=== PATIENT | female | born 1970 | race African-American/Black ===

== ENCOUNTER 2018-09-05 02:21 | Inpatient (IN) | payer MEDICAID, OTHER ==
[~2018-09-05] VITALS: Ht 160 cm; Wt 82.1 kg
[2018-09-05] MEDS ORDERED: KETOROLAC 30 MG INJ IV STA (02:37)
[2018-09-05] MEDS ORDERED: HYDROmorphONE 0.5 MG/0.5 ML SYG IV STA (02:37)
[2018-09-05] MEDS ORDERED: ONDANSETRON 4 MG INJ IV STA (02:37)
[2018-09-05] MEDS ORDERED: SOD CHLORIDE 0.9% 1,000 ML IV ONE (04:00)
--- NOTE | 2018-09-05 05:49 | ERD ---
ER Documentation Chief Complaint Chief Complaint FLANK PAIN HPI This is a 47-year-old female who presents for evaluation of left flank pain. Patient was brought in by EMS, reporting significant pain, seen at an outside hospital [place] yesterday and was diagnosed with kidney stones, she has not had a fever, endorses nausea no vomiting. No chest pain or shortness of breath, symptoms are intermittent, no alleviating or aggravating factors. ROS All systems reviewed and are negative except as per history of present illness. Allergies Allergies: Coded Allergies: No Known Allergy (Unverified , 09/05/18) PMhx/Soc Medical and Surgical Hx: pt denies Surgical Hx History of Surgery: No Anesthesia Reaction: No Hx Neurological Disorder: No Hx Respiratory Disorders: No Hx Cardiac Disorders: Yes (HTN ) Hx Psychiatric Problems: Yes (ANXIETY ) Hx Miscellaneous Medical Probl: No Hx Alcohol Use: Yes (HEAVY DRINKER) Hx Substance Use: Yes (METH, MARIJUANA ) Hx Tobacco Use: Yes Smoking Status: Current every day smoker Physical Exam Vitals Vital Signs Date Temp Pulse Resp B/P (MAP) Pulse Ox O2 O2 Flow FiO2 Time Delivery Rate 09/05/18 90 16 126/98 95 Room Air 04:58 (107) 09/05/18 97.4 102 22 149/102 98 03:13 (118) 09/05/18 97.4 102 20 149/102 98 Nasal 3.0 03:06 (118) Cannula Physical Exam Const: Uncomfortable appearing, writhing in pain Head: Atraumatic Eyes: Normal Conjunctiva ENT: Normal External Ears, Nose and Mouth. Neck: Full range of motion. No meningismus. Resp: Clear to auscultation bilaterally Cardio: Regular rate and rhythm, no murmurs Abd: Soft, non tender, non distended. Normal bowel sounds Skin: No petechiae or rashes Back: No midline or flank tenderness Ext: No cyanosis, or edema Neur: Awake and alert Psych: Normal Mood and Affect Result Diagram: 09/05/180 09/05/18 024 Results 24 hrs Laboratory Tests Test 09/05/18 02:40 09/05/18 04:05 09/05/18 04:11 White Blood Count 8.5 10^3/ul Red Blood Count 4.46 10^6/ul Hemoglobin 13.2 g/dl Hematocrit 39.5 % Mean Corpuscular Volume 88.6 fl Mean Corpuscular Hemoglobin 29.6 pg Mean Corpuscular 33.4 g/dl Hemoglobin Concent Red Cell Distribution Width 13.6 % Platelet Count 257 10^3/UL Mean Platelet Volume 10.8 fl Immature Granulocytes % 0.200 % Neutrophils % 80.4 % Lymphocytes % 12.3 % Monocytes % 6.5 % Eosinophils % 0.5 % Basophils % 0.1 % Nucleated Red Blood Cells % 0.0 /100WBC Immature Granulocytes # 0.020 10^3/ul Neutrophils # 6.8 10^3/ul Lymphocytes # 1.0 10^3/ul Monocytes # 0.6 10^3/ul Eosinophils # 0.0 10^3/ul Basophils # 0.0 10^3/ul Nucleated Red Blood Cells # 0.0 10^3/ul Sodium Level 142 mmol/L Potassium Level 3.9 mmol/L Chloride Level 107 mmol/L Carbon Dioxide Level 24 mmol/L Anion Gap 11 Blood Urea Nitrogen 13 mg/dl Creatinine 1.35 mg/dl Est Glomerular Filtrat 51 mL/min Rate mL/min Glucose Level 123 mg/dl Calcium Level 10.3 mg/dl Total Bilirubin 0.7 mg/dl Direct Bilirubin 0.00 mg/dl Indirect Bilirubin 0.7 mg/dl Aspartate Amino 26 IU/L Transf (AST/SGOT) Alanine 20 IU/L Aminotransferase (ALT/SGPT) Alkaline Phosphatase 121 IU/L Troponin I < 0.012 ng/ml Total Protein 7.5 g/dl Albumin 4.2 g/dl Globulin 3.30 g/dl Albumin/Globulin Ratio 1.27 Lipase 98 U/L Urine Color YELLOW Urine Clarity CLOUDY Urine pH 5.0 Urine Specific [place] 1.021 Urine Ketones TRACE mg/dL Urine Nitrite NEGATIVE mg/dL Urine Bilirubin NEGATIVE mg/dL Urine Urobilinogen NEGATIVE mg/dL Urine Leukocyte Esterase NEGATIVE Nickolas/ul Urine Microscopic RBC 3 /HPF Urine Microscopic WBC 8 /HPF Urine Squamous Epithelial Cells MANY /HPF Urine Calcium Oxalate Crystals FEW /HPF Urine Bacteria FEW /HPF Urine Mucus FEW /HPF Urine Hemoglobin NEGATIVE mg/dL Urine Glucose NEGATIVE mg/dL Urine Total Protein NEGATIVE mg/dl POC Beta HCG, Qualitative NEGATIVE Current Medications Medications Dose Sig/En[place] Start Time Status Last (Trade) Ordered Route PRN Stop Time Admin Dose Reason Admin 1 mg ONCE STAT 09/05/18 DC 09/05/18 Hydromorphone IV 02:37 02:45 HCl 09/05/18 02:39 (Dilaudid) Ondansetron 4 mg ONCE STAT 09/05/18 DC 09/05/18 HCl (Zofran IV 02:37 02:45 Inj) 09/05/18 02:39 Ketorolac 30 mg ONCE STAT 09/05/18 DC 09/05/18 Tromethamine IV 02:37 02:45 (Toradol) 09/05/18 02:39 Sodium 1,000 ml @ Q1H ONCE 09/05/18 DC 09/05/18 Chloride 1,000 mls/hr IV 04:00 02:45 09/05/18 04:59 Procedures/MDM This is a 47-year-old female who presents for relation of left-sided flank pain. She was at [facility] as noted above, and was diagnosed kidney stone, her CT scan showed an obstructing proximal left ureter stone, given these findings, and her persistent pain she will be admitted for further workup. She has no evidence of infection, and is otherwise hemodynamically stable. She will be admitted to [facility] EKG: Rate/Rhythm: Normal Sinus Rhythm QRS, ST, T-waves: No changes consistent w/ acute ischemia Impression: No evidence of ischemia or arrhythmia Accepting Care Team: Current data and ongoing care discussed. Primary: Carl[place] Consulting: Nelia Outstanding Data: none IMPRESSION: 1. Mild left-sided hydroureteronephrosis with obstructing proximal left ureteral 6 mm calculus. 2. Nonobstructing mid right renal 4 mm calculus. 3. Metallic radiopaque 1.4 cm foreign body within the cecal region. Clinical correlation is necessary. 4. Retained stool within the proximal colon without obstruction. 5. Moderate hiatal hernia. 6. No CT evidence for appendicitis. 7. Bulbous heterogeneous uterus. 8. Degenerative L5-S1 spondylolisthesis (20%). Departure Diagnosis: Primary Impression: Flank pain Additional Impression: Kidney stone Condition: Stable ABI BLAS MD Sep 05, 2018 05:49
--- NOTE | 2018-09-05 06:15 | HP ---
Date/Time of Note Date/Time of Note DATE: 09/05/18 TIME: 06:12 Assessment/Plan VTE Prophylaxis Pharmacological prophylaxis: heparin Lines/Catheters Urinary Cath still in place: No Assessment/Plan Assessment/Plan 1. Obstructing left proximal ureteral stone with hydronephrosis -IV fluid -Flomax -Strain urine -Awaiting neurology evaluation 2. UTI: -IV antibiotic -Follow-up culture results -See #1 3. History of hypertension: BP currently is in acceptable range 4. History of anxiety: We will provide antianxiety meds as needed 5. History of substance abuse, meth, marijuana and possibly cocaine -U tox screen -Monitor for withdrawal symptoms Result Diagram: 09/05/18 0240 09/05/18 0240 Results 24hrs Laboratory Tests Test 09/05/18 02:40 09/05/18 04:05 09/05/18 04:11 White Blood Count 8.5 Red Blood Count 4.46 Hemoglobin 13.2 Hematocrit 39.5 Mean Corpuscular Volume 88.6 Mean Corpuscular Hemoglobin 29.6 Mean Corpuscular Hemoglobin Concent 33.4 Red Cell Distribution Width 13.6 Platelet Count 257 Mean Platelet Volume 10.8 H Immature Granulocytes % 0.200 Neutrophils % 80.4 H Lymphocytes % 12.3 L Monocytes % 6.5 Eosinophils % 0.5 Basophils % 0.1 Nucleated Red Blood Cells % 0.0 Immature Granulocytes # 0.020 Neutrophils # 6.8 Lymphocytes # 1.0 Monocytes # 0.6 Eosinophils # 0.0 Basophils # 0.0 Nucleated Red Blood Cells # 0.0 Sodium Level 142 Potassium Level 3.9 Chloride Level 107 Carbon Dioxide Level 24 Anion Gap 11 Blood Urea Nitrogen 13 Creatinine 1.35 H Est Glomerular Filtrat Rate mL/min 51 L Glucose Level 123 Calcium Level 10.3 H Total Bilirubin 0.7 Direct Bilirubin 0.00 Indirect Bilirubin 0.7 Aspartate Amino Transf (AST/SGOT) 26 Alanine Aminotransferase (ALT/SGPT) 20 Alkaline Phosphatase 121 Troponin I < 0.012 Total Protein 7.5 Albumin 4.2 Globulin 3.30 H Albumin/Globulin Ratio 1.27 Lipase 98 Urine Color YELLOW Urine Clarity CLOUDY A Urine pH 5.0 Urine Specific [place] 1.021 Urine Ketones TRACE A Urine Nitrite NEGATIVE Urine Bilirubin NEGATIVE Urine Urobilinogen NEGATIVE Urine Leukocyte Esterase NEGATIVE Urine Microscopic RBC 3 Urine Microscopic WBC 8 H Urine Squamous Epithelial Cells MANY A Urine Calcium Oxalate Crystals FEW A Urine Bacteria FEW A Urine Mucus FEW A Urine Hemoglobin NEGATIVE Urine Glucose NEGATIVE Urine Total Protein NEGATIVE POC Beta HCG, Qualitative NEGATIVE HPI/ROS Admit Date/Time Admit Date/Time Hx of Present Illness This is a 47-year-old female with a history of hypertension, anxiety, substance abuse including alcohol meth and marijuana. Patient presented to ER complaining of left flank pain. She appears anxious and agitated constantly asking for pain medication when i was examining her. She told me to read her chart when i asked questions. Per ER, she was at an outside hospital yesterday with similar symptoms and was diagnosed with a kidney stones. When asked about alcohol, she said it has been a while since she drank alcohol. When asked about marijuana, methamphetamine and cocaine, she nodded her head to say yes. She did not answer the last time she did any of those drugs. When presented to ER, CT abdomen pelvis shows the followin. Mild left-sided hydroureteronephrosis with obstructing proximal left ureteral 6 mm calculus. 2. Nonobstructing mid right renal 4 mm calculus. 3. Metallic radiopaque 1.4 cm foreign body within the cecal region. Clinical correlation is necessary. 4. Retained stool within the proximal colon without obstruction. 5. Moderate hiatal hernia. 6. No CT evidence for appendicitis. 7. Bulbous heterogeneous uterus. 8. Degenerative L5-S1 spondylolisthesis (20%). PMH/Family/Social Past Medical History Medical History: other (see hpi) Coded Allergies: No Known Allergy (Unverified , 09/05/18) Past Surgical History Past Surgical Hx: other (see hpi) Family History Significant Family History: no pertinent family hx Social History Alcohol Use: occasionally Smoking Status: Current every day smoker Drug Use: marijuana, other (meth) Exam/Review of Systems Vital Signs Vitals Vital Signs Date Temp Pulse Resp B/P (MAP) Pulse Ox O2 O2 Flow FiO2 Time Delivery Rate 09/05/18 82 16 118/75 98 Room Air 05:56 (89) 09/05/18 97.4 03:13 09/05/18 3.0 03:06 Exam Constitutional: other (Appears anxious and agitated. She was also sleeping during my questioning, but was arousable. I was unable to do full physical exam.) AARTI LANZA MD Sep 05, 2018 06:15
[2018-09-05] MEDS ORDERED: morphine 4 MG/ML VIAL IV PRN (06:30)
[2018-09-05] MEDS ORDERED: HYDROCODONE/APAP (5/325) TAB PO PRN ×2 (06:30)
[2018-09-05] MEDS ORDERED: ACETAMINOPHEN 325 MG TAB PO PRN (06:30)
[2018-09-05] MEDS ORDERED: ONDANSETRON 4 MG INJ IV PRN (06:30)
[2018-09-05] MEDS ORDERED: NACL 0.9% 3 ML SYG IV SCH (06:30)
[2018-09-05] MEDS ORDERED: ALBUTEROL/IPRATROPIUM (NEB) 3 ML AMP HHN PRN (06:30)
[2018-09-05 06:41] VITALS: Ht 160 cm; Wt 82.1 kg
[2018-09-05 06:47] VITALS: BP 153/113; PULSE 72; RESP 18
[2018-09-05 07:17] VITALS: BP 140/100; PULSE 72; RESP 15
[2018-09-05] MEDS: TAMSULOSIN (SR) 0.4 MG CAP PO SCH (07:30)
[2018-09-05] MEDS: SOD CHLORIDE 0.9% 1,000 ML IV SCH ×2 (07:31→19:24)
[2018-09-05] MEDS: CEFTRIAXONE 1 GM/50 ML (PMX) 50 ML IVPB SCH (09:28)
--- NOTE | 2018-09-05 11:46 | QN ---
Documentation Comment 47-year-old obese female with substance abuse/meth abuse/alcoholism, hyper tension, anxiety disorders, admitted with obstructing left ureteral stone with hydronephrosis. Patient appears to be very rude and she did not let me examine her at all. Patient does not want to be bothered. Currently, she does not seem to be in any acute distress. Patient is on appropriate antimicrobials. Urology consultation pending. We will follow-up on this. Obtain A urine drug toxicology. Telephone Cleaner follow-up Case d/w . CARLOS THOMPSON NP Sep 05, 2018 11:46
--- NOTE | 2018-09-05 12:35 | CONS ---
Consultation Date/Type/Reason Admit Date/Time September 05, 2018 Date of Consultation: Sep 05, 2018 Type of Consult Urology Reason for Consultation Left upper ureteral stone Requesting Provider: AARTI LANZA MD Date/Time of Note DATE: 09/05/18 TIME: 12:21 Hx of Present Illness 47-year-old -[place] female presented to the emergency room with left flank pain associated with nausea and vomiting. She underwent a CT scan of the abdomen and pelvis and that showed: 1. Mild left-sided hydroureteronephrosis with obstructing proximal left ureteral 6 mm calculus. 2. Nonobstructing mid right renal 4 mm calculus. 3. Metallic radiopaque 1.4 cm foreign body within the cecal region. Clinical correlation is necessary. 4. Retained stool within the proximal colon without obstruction. 5. Moderate hiatal hernia. 6. No CT evidence for appendicitis. 7. Bulbous heterogeneous uterus. 8. Degenerative L5-S1 spondylolisthesis (20%) It appears that the patient also prior to her admission here went to [facility] for same problem. Patient states that she has not had any kidney stone before. She denies any dy suria, there is no history of gross hematuria and no urgency or urgency incontinence. Impression: 6 mm stone in the left upper ureter causing obstruction and pain. 4 mm right renal stone of no clinical significance at the present. Plan: Strain the urine for stones, pain medications as needed, tamsulosin 0.4 mg daily, KUB. She may be able to pass the stone but will give her the chance and if she does not then she will need to undergo ureteroscopy and laser lithotripsy and insertion of a JJ stent. Patient cooperation was very limited. She acted like a person who is mad and did not want to talk. I told her I am here to help her and she has to talk to me so I could help her Constitutional: other (States she is in pain) Eyes: no complaints ENT: no complaints Respiratory: No shortness of breath Cardiovascular: no complaints Gastrointestinal: nausea (On admission), vomiting (On admission) Genitourinary: flank pain (Left side); No dysuria Musculoskeletal: no complaints Skin: no complaints Neurologic: no complaints Endocrine: no complaints Lymphatic: no complaints Psychological: anxiety Past Medical History Medical History: high cholesterol, hypertension Medications Current Medications Sodium Chloride 1,000 ml @ 125 mls/hr Q8H IV Last administered on 09/05/18at 07:31; Admin Dose 125 MLS/HR; Start 09/05/18 at 06:08 IV Flush (NS 3 ml) 3 ml PER PROTOCOL IV ; Start 09/05/18 at 06:30 Ondansetron HCl (Zofran Inj) 4 mg Q6H PRN IV NAUSEA/VOMITING; Start 09/05/18 at 06:30 Acetaminophen (Tylenol Tab) 650 mg Q6H PRN PO .PAIN 1-3 OR TEMP; Start 09/05/18 at 06:30 Acetaminophen/ Hydrocodone Bitart ([place] (5/325)) 1 tab Q6H PRN PO .MOD PAIN 4- 6; Start 09/05/18 at 06:30 Acetaminophen/ Hydrocodone Bitart ([place] (5/325)) 2 tab Q6H PRN PO .SEVERE PAIN 7-10; Start 09/05/18 at 06:30 Albuterol/ Ipratropium (Duoneb) 3 ml Q2H RESP THERAPY PRN HHN SHORTNESS OF BREATH; Start 09/05/18 at 06:30 Ceftriaxone Sodium 50 ml @ 100 mls/hr DAILY IVPB Last administered on 09/05/18at 09:28; Admin Dose 100 MLS/HR; Start 09/05/18 at 09:00 Tamsulosin HCl (Flomax) 0.4 mg Q24H PO Last administered on 09/05/18at 07:30; Admin Dose 0.4 MG; Start 09/05/18 at 06:30 Morphine Sulfate (morphine) 4 mg Q4H PRN IV pain Last administered on 09/05/18at 07:53; Admin Dose 4 MG; Start 09/05/18 at 06:30 Ketorolac Tromethamine (Toradol) 30 mg Q6H PRN IV PAIN LEVEL 1-3; Start 09/05/18 at 09:00; Stop 09/08/18 at 08:59 Allergies: Coded Allergies: No Known Allergy (Unverified , 09/05/18) Past Surgical History Past Surgical Hx: no surgical history (She denies any prior surgery) Social History Alcohol Use: other (She does drink but would not say how much) Smoking Status: Current every day smoker Drug Use: marijuana, other (Crystal meth) Exam/Review of Systems Exam Vitals Vital Signs Date Temp Pulse Resp B/P (MAP) Pulse Ox O2 O2 Flow FiO2 Time Delivery Rate 09/05/18 98.0 72 15 140/100 96 Room Air 07:17 (113) 09/05/18 3.0 03:06 Constitutional: other (She kept her eyes closed while talking and acting like she wants to sleep. But I had her sit up and talk to me so I could get accurate history and exam.) Psych: anxiety Head: normocephalic Eyes: nl conjunctiva ENMT: nl external ears & nose Neck: supple, non-tender Respiratory: normal air movement; No wheezing Cardiovascular: No jugular venous distention (JVD) Gastrointestinal: tender (Left side) Genitourinary - Female: CVA tenderness (Left side) Musculoskeletal: nl extremities to inspection Extremities: No calf tenderness Neurological: nl mental status Skin: nl turgor Results Result Diagram: 09/05/18 0240 09/05/18 0240 Results 24hrs Laboratory Tests Test 09/05/18 02:40 09/05/18 04:05 09/05/18 04:11 White Blood Count 8.5 Red Blood Count 4.46 Hemoglobin 13.2 Hematocrit 39.5 Mean Corpuscular Volume 88.6 Mean Corpuscular Hemoglobin 29.6 Mean Corpuscular Hemoglobin Concent 33.4 Red Cell Distribution Width 13.6 Platelet Count 257 Mean Platelet Volume 10.8 H Immature Granulocytes % 0.200 Neutrophils % 80.4 H Lymphocytes % 12.3 L Monocytes % 6.5 Eosinophils % 0.5 Basophils % 0.1 Nucleated Red Blood Cells % 0.0 Immature Granulocytes # 0.020 Neutrophils # 6.8 Lymphocytes # 1.0 Monocytes # 0.6 Eosinophils # 0.0 Basophils # 0.0 Nucleated Red Blood Cells # 0.0 Sodium Level 142 Potassium Level 3.9 Chloride Level 107 Carbon Dioxide Level 24 Anion Gap 11 Blood Urea Nitrogen 13 Creatinine 1.35 H Est Glomerular Filtrat Rate mL/min 51 L Glucose Level 123 Calcium Level 10.3 H Total Bilirubin 0.7 Direct Bilirubin 0.00 Indirect Bilirubin 0.7 Aspartate Amino Transf (AST/SGOT) 26 Alanine Aminotransferase (ALT/SGPT) 20 Alkaline Phosphatase 121 Troponin I < 0.012 Total Protein 7.5 Albumin 4.2 Globulin 3.30 H Albumin/Globulin Ratio 1.27 Lipase 98 Urine Color YELLOW Urine Clarity CLOUDY A Urine pH 5.0 Urine Specific [place] 1.021 Urine Ketones TRACE A Urine Nitrite NEGATIVE Urine Bilirubin NEGATIVE Urine Urobilinogen NEGATIVE Urine Leukocyte Esterase NEGATIVE Urine Microscopic RBC 3 Urine Microscopic WBC 8 H Urine Squamous Epithelial Cells MANY A Urine Calcium Oxalate Crystals FEW A Urine Bacteria FEW A Urine Mucus FEW A Urine Hemoglobin NEGATIVE Urine Glucose NEGATIVE Urine Total Protein NEGATIVE POC Beta HCG, Qualitative NEGATIVE Imaging Imaging CT scan of the abdomen and pelvis: 1. Mild left-sided hydroureteronephrosis with obstructing proximal left ureteral 6 mm calculus. 2. Nonobstructing mid right renal 4 mm calculus. 3. Metallic radiopaque 1.4 cm foreign body within the cecal region. Clinical correlation is necessary. 4. Retained stool within the proximal colon without obstruction. 5. Moderate hiatal hernia. 6. No CT evidence for appendicitis. 7. Bulbous heterogeneous uterus. 8. Degenerative L5-S1 spondylolisthesis (20%) Medications Medication Current Medications Sodium Chloride 1,000 ml @ 125 mls/hr Q8H IV Last administered on 09/05/18at 07:31; Admin Dose 125 MLS/HR; Start 09/05/18 at 06:08 IV Flush (NS 3 ml) 3 ml PER PROTOCOL IV ; Start 09/05/18 at 06:30 Ondansetron HCl (Zofran Inj) 4 mg Q6H PRN IV NAUSEA/VOMITING; Start 09/05/18 at 06:30 Acetaminophen (Tylenol Tab) 650 mg Q6H PRN PO .PAIN 1-3 OR TEMP; Start 09/05/18 at 06:30 Acetaminophen/ Hydrocodone Bitart ([place] (5/325)) 1 tab Q6H PRN PO .MOD PAIN 4- 6; Start 09/05/18 at 06:30 Acetaminophen/ Hydrocodone Bitart ([place] (5/325)) 2 tab Q6H PRN PO .SEVERE PAIN 7-10; Start 09/05/18 at 06:30 Albuterol/ Ipratropium (Duoneb) 3 ml Q2H RESP THERAPY PRN HHN SHORTNESS OF BREATH; Start 09/05/18 at 06:30 Ceftriaxone Sodium 50 ml @ 100 mls/hr DAILY IVPB Last administered on 09/05at 09:28; Admin Dose 100 MLS/HR; Start 09/05/18 at 09:00 Tamsulosin HCl (Flomax) 0.4 mg Q24H PO Last administered on 09/05/18at 07:30; Admin Dose 0.4 MG; Start 09/05/18 at 06:30 Morphine Sulfate (morphine) 4 mg Q4H PRN IV pain Last administered on 09/05/18at 07:53; Admin Dose 4 MG; Start 09/05/18 at 06:30 Ketorolac Tromethamine (Toradol) 30 mg Q6H PRN IV PAIN LEVEL 1-3; Start 09/05/18 at 09:00; Stop 09/08/18 at 08:59 TEJAS BARRIOS MD Sep 05, 2018 12:31
[2018-09-05 14:10] VITALS: BP 186/64; PULSE 120; RESP 14
[2018-09-05] MEDS: PANTOPRAZOLE (EC) 40 MG TAB PO SCH (17:39)
[2018-09-05 19:33] VITALS: BP 136/87; PULSE 120; RESP 15
[2018-09-05] MEDS: KETOROLAC 30 MG INJ IV PRN (20:20)
[2018-09-06 01:47] VITALS: BP 118/72; PULSE 65; RESP 18
[2018-09-06] MEDS: SOD CHLORIDE 0.9% 1,000 ML IV SCH ×4 (03:31→20:30)
[2018-09-06] MEDS: PANTOPRAZOLE (EC) 40 MG TAB PO SCH (06:16)
[2018-09-06] MEDS: TAMSULOSIN (SR) 0.4 MG CAP PO SCH (06:16)
[2018-09-06 08:03] VITALS: BP 187/98; PULSE 80; RESP 19
[2018-09-06] MEDS: CEFTRIAXONE 1 GM/50 ML (PMX) 50 ML IVPB SCH (09:01)
[2018-09-06 09:03] VITALS: BP 138/80; PULSE 81
[2018-09-06] MEDS: KETOROLAC 30 MG INJ IV PRN ×2 (10:04→18:01)
[2018-09-06 14:35] VITALS: BP 137/90; PULSE 93; RESP 18
[2018-09-06 14:40] VITALS: BP 117/57; RESP 19
--- NOTE | 2018-09-06 16:50 | PN ---
Date/Time of Note Date/Time of Note DATE: 09/06/18 TIME: 16:49 Assessment/Plan VTE Prophylaxis Risk score (from Nsg)>0 risk: 2 SCD applied (from Nsg): Yes Pharmacological prophylaxis: heparin Lines/Catheters IV Catheter Type (from Nrsg): Peripheral IV Urinary Cath still in place: No Assessment/Plan Hospital Course Well appeairng no distress AOx3 RRR CTAB Soft nt nd Wwp no cce A/P: 47 yo female with nephrolithiasis and hydronephrosis - IVF - Strain urine - Pain control - Uretroscopy per Dr Pickens Result Diagram: 09/06/18 0425 09/06/18 0425 Results 24hrs Laboratory Tests Test 09/06/18 04:25 White Blood Count 7.7 Red Blood Count 4.32 Hemoglobin 12.6 Hematocrit 37.5 Mean Corpuscular Volume 86.8 Mean Corpuscular Hemoglobin 29.2 Mean Corpuscular Hemoglobin Concent 33.6 Red Cell Distribution Width 13.5 Platelet Count 258 Mean Platelet Volume 10.9 H Immature Granulocytes % 0.300 Neutrophils % 68.4 Lymphocytes % 22.3 Monocytes % 8.0 Eosinophils % 0.9 Basophils % 0.1 Nucleated Red Blood Cells % 0.0 Immature Granulocytes # 0.020 Neutrophils # 5.2 Lymphocytes # 1.7 Monocytes # 0.6 Eosinophils # 0.1 Basophils # 0.0 Nucleated Red Blood Cells # 0.0 Sodium Level 141 Potassium Level 3.5 Chloride Level 107 Carbon Dioxide Level 25 Anion Gap 9 Blood Urea Nitrogen 9 Creatinine 0.89 Est Glomerular Filtrat Rate mL/min > 60 Glucose Level 105 Hemoglobin A1c 5.7 Calcium Level 9.2 Phosphorus Level 3.3 Magnesium Level 1.8 Total Bilirubin 0.5 Direct Bilirubin 0.00 Indirect Bilirubin 0.5 Aspartate Amino Transf (AST/SGOT) 18 Alanine Aminotransferase (ALT/SGPT) 17 Alkaline Phosphatase 101 Total Protein 6.8 Albumin 3.6 Globulin 3.20 Albumin/Globulin Ratio 1.12 Triglycerides Level 81 Cholesterol Level 189 LDL Cholesterol, Calculated 99 HDL Cholesterol 74 Cholesterol/HDL Ratio 2.5 Subjective 24 Hr Interval Summary Free Text/Dictation Pain controlled Awaiting cystoscopy Exam/Review of Systems Exam Vitals Vital Signs Date Temp Pulse Resp B/P (MAP) Pulse Ox O2 O2 Flow FiO2 Time Delivery Rate 09/06/18 99.1 19 117/57 98 Room Air 14:40 (77) 09/06/18 93 14:35 09/05/18 3.0 03:06 Intake and Output 09/05/18 09/05/18 09/06/18 1515:00 23:00 07:00 IntakeIntake Total 50 ml 1300 ml 1370 ml OutputOutput Total 500 ml 1800 ml BalanceBalance -450 ml 1300 ml -430 ml Results Results 24hrs Laboratory Tests Test 09/06/18 04:25 White Blood Count 7.7 Red Blood Count 4.32 Hemoglobin 12.6 Hematocrit 37.5 Mean Corpuscular Volume 86.8 Mean Corpuscular Hemoglobin 29.2 Mean Corpuscular Hemoglobin Concent 33.6 Red Cell Distribution Width 13.5 Platelet Count 258 Mean Platelet Volume 10.9 H Immature Granulocytes % 0.300 Neutrophils % 68.4 Lymphocytes % 22.3 Monocytes % 8.0 Eosinophils % 0.9 Basophils % 0.1 Nucleated Red Blood Cells % 0.0 Immature Granulocytes # 0.020 Neutrophils # 5.2 Lymphocytes # 1.7 Monocytes # 0.6 Eosinophils # 0.1 Basophils # 0.0 Nucleated Red Blood Cells # 0.0 Sodium Level 141 Potassium Level 3.5 Chloride Level 107 Carbon Dioxide Level 25 Anion Gap 9 Blood Urea Nitrogen 9 Creatinine 0.89 Est Glomerular Filtrat Rate mL/min > 60 Glucose Level 105 Hemoglobin A1c 5.7 Calcium Level 9.2 Phosphorus Level 3.3 Magnesium Level 1.8 Total Bilirubin 0.5 Direct Bilirubin 0.00 Indirect Bilirubin 0.5 Aspartate Amino Transf (AST/SGOT) 18 Alanine Aminotransferase (ALT/SGPT) 17 Alkaline Phosphatase 101 Total Protein 6.8 Albumin 3.6 Globulin 3.20 Albumin/Globulin Ratio 1.12 Triglycerides Level 81 Cholesterol Level 189 LDL Cholesterol, Calculated 99 HDL Cholesterol 74 Cholesterol/HDL Ratio 2.5 Medications Medication Current Medications Sodium Chloride 1,000 ml @ 125 mls/hr Q8H IV Last administered on 09/06/18at 12:37; Admin Dose 125 MLS/HR; Start 09/05/18 at 06:08 IV Flush (NS 3 ml) 3 ml PER PROTOCOL IV ; Start 09/05/18 at 06:30 Ondansetron HCl (Zofran Inj) 4 mg Q6H PRN IV NAUSEA/VOMITING; Start 09/05/18 at 06:30 Acetaminophen (Tylenol Tab) 650 mg Q6H PRN PO .PAIN 1-3 OR TEMP; Start 09/05/18 at 06:30 Acetaminophen/ Hydrocodone Bitart ([place] (5/325)) 1 tab Q6H PRN PO .MOD PAIN 4- 6; Start 09/05/18 at 06:30 Acetaminophen/ Hydrocodone Bitart ([place] (5/325)) 2 tab Q6H PRN PO .SEVERE PAIN 7-10; Start 09/05/18 at 06:30 Albuterol/ Ipratropium (Duoneb) 3 ml Q2H RESP THERAPY PRN HHN SHORTNESS OF BREATH; Start 09/05/18 at 06:30 Ceftriaxone Sodium 50 ml @ 100 mls/hr DAILY IVPB Last administered on 09/06/18at 09:01; Admin Dose 100 MLS/HR; Start 09/05/18 at 09:00 Tamsulosin HCl (Flomax) 0.4 mg Q24H PO Last administered on 09/06/18at 06:16; Admin Dose 0.4 MG; Start 09/05/18 at 06:30 Morphine Sulfate (morphine) 4 mg Q4H PRN IV pain Last administered on 09/05/18at 07:53; Admin Dose 4 MG; Start 09/05/18 at 06:30 Ketorolac Tromethamine (Toradol) 30 mg Q6H PRN IV PAIN LEVEL 1-3 Last administered on 09/06/18at 10:04; Admin Dose 30 MG; Start 09/05/18 at 09:00; Stop 09/08/18 at 08:59 Pantoprazole (Protonix Tab) 40 mg DAILY@0600 PO Last administered on 09/06/18at 06:16; Admin Dose 40 MG; Start 09/05/18 at 16:30 BRANDI OLEARY MD Sep 06, 2018 16:50
--- NOTE | 2018-09-06 17:49 | CONS ---
Consult Date/Type/Reason Admit Date/Time Sep 05, 2018 at 05:44 Initial Consult Date 09/05/18 Type of Consultation: Urology Reason for Consultation Left upper ureteral stone Requesting Provider: AARTI LANZA MD Date/Time of Note DATE: 09/06/18 TIME: 17:46 Subjective At the present the patient denies having any pain. There is no nausea or vomiting. Objective Vitals Vital Signs Date Temp Pulse Resp B/P (MAP) Pulse Ox O2 O2 Flow FiO2 Time Delivery Rate 09/06/18 99.1 19 117/57 98 Room Air 14:40 (77) 09/06/18 93 14:35 09/05/18 3.0 03:06 Intake and Output 09/05/18 09/05/18 09/06/18 1515:00 23:00 07:00 IntakeIntake Total 50 ml 1300 ml 1370 ml OutputOutput Total 500 ml 1800 ml BalanceBalance -450 ml 1300 ml -430 ml Exam On the exam she does have left flank tenderness. KUB done today showed the stone in the same level Results/Medications Result Diagram: 09/06/18 0425 09/06/18 0425 Results 24 hrs Laboratory Tests Test 09/06/18 04:25 White Blood Count 7.7 Red Blood Count 4.32 Hemoglobin 12.6 Hematocrit 37.5 Mean Corpuscular Volume 86.8 Mean Corpuscular Hemoglobin 29.2 Mean Corpuscular Hemoglobin Concent 33.6 Red Cell Distribution Width 13.5 Platelet Count 258 Mean Platelet Volume 10.9 H Immature Granulocytes % 0.300 Neutrophils % 68.4 Lymphocytes % 22.3 Monocytes % 8.0 Eosinophils % 0.9 Basophils % 0.1 Nucleated Red Blood Cells % 0.0 Immature Granulocytes # 0.020 Neutrophils # 5.2 Lymphocytes # 1.7 Monocytes # 0.6 Eosinophils # 0.1 Basophils # 0.0 Nucleated Red Blood Cells # 0.0 Sodium Level 141 Potassium Level 3.5 Chloride Level 107 Carbon Dioxide Level 25 Anion Gap 9 Blood Urea Nitrogen 9 Creatinine 0.89 Est Glomerular Filtrat Rate mL/min > 60 Glucose Level 105 Hemoglobin A1c 5.7 Calcium Level 9.2 Phosphorus Level 3.3 Magnesium Level 1.8 Total Bilirubin 0.5 Direct Bilirubin 0.00 Indirect Bilirubin 0.5 Aspartate Amino Transf (AST/SGOT) 18 Alanine Aminotransferase (ALT/SGPT) 17 Alkaline Phosphatase 101 Total Protein 6.8 Albumin 3.6 Globulin 3.20 Albumin/Globulin Ratio 1.12 Triglycerides Level 81 Cholesterol Level 189 LDL Cholesterol, Calculated 99 HDL Cholesterol 74 Cholesterol/HDL Ratio 2.5 Medications Current Medications Sodium Chloride 1,000 ml @ 125 mls/hr Q8H IV Last administered on 09/06/18at 12:37; Admin Dose 125 MLS/HR; Start 09/05/18 at 06:08 IV Flush (NS 3 ml) 3 ml PER PROTOCOL IV ; Start 09/05/18 at 06:30 Ondansetron HCl (Zofran Inj) 4 mg Q6H PRN IV NAUSEA/VOMITING; Start 09/05/18 at 06:30 Acetaminophen (Tylenol Tab) 650 mg Q6H PRN PO .PAIN 1-3 OR TEMP; Start 09/05/18 at 06:30 Acetaminophen/ Hydrocodone Bitart (Pixley (5/325)) 1 tab Q6H PRN PO .MOD PAIN 4- 6; Start 09/05/18 at 06:30 Acetaminophen/ Hydrocodone Bitart (Pixley (5/325)) 2 tab Q6H PRN PO .SEVERE PAIN 7-10; Start 09/05/18 at 06:30 Albuterol/ Ipratropium (Duoneb) 3 ml Q2H RESP THERAPY PRN HHN SHORTNESS OF BREATH; Start 09/05/18 at 06:30 Ceftriaxone Sodium 50 ml @ 100 mls/hr DAILY IVPB Last administered on 09/06/18at 09:01; Admin Dose 100 MLS/HR; Start 09/05/18 at 09:00 Tamsulosin HCl (Flomax) 0.4 mg Q24H PO Last administered on 09/06/18at 06:16; Admin Dose 0.4 MG; Start 09/05/18 at 06:30 Morphine Sulfate (morphine) 4 mg Q4H PRN IV pain Last administered on 09/05/18at 07:53; Admin Dose 4 MG; Start 09/05/18 at 06:30 Ketorolac Tromethamine (Toradol) 30 mg Q6H PRN IV PAIN LEVEL 1-3 Last administered on 09/06/18at 10:04; Admin Dose 30 MG; Start 09/05/18 at 09:00; Stop 09/08/18 at 08:59 Pantoprazole (Protonix Tab) 40 mg DAILY@0600 PO Last administered on 09/06/18at 06:16; Admin Dose 40 MG; Start 09/05/18 at 16:30 Assessment/Plan Hospital Course (Demo Recall) 47-year-old female was admitted with abdominal pain associated with nausea and vomiting. CT scan of the abdomen and pelvis that showed a stone in the upper left ureter. Patient is being managed with pain medications and tamsulosin with the hope that she will pass the stone or move it further down the ureter. Presently she is comfortable and has no severe pain. Arrangements were being made to transfer her to the hospital contracted with her medical group. Her white count is normal and she is afebrile and she has no pain. Therefore she may be transferred to the other hospital or even discharged with instructions that if she has severe pain again to go to the hospital contracted with her insurance. TEJAS BARRIOS MD Sep 06, 2018 17:49
[2018-09-07] MEDS: SOD CHLORIDE 0.9% 1,000 ML IV SCH (04:21)
[2018-09-07 05:51] VITALS: BP 138/92; PULSE 123; RESP 19
[2018-09-07] MEDS: KETOROLAC 30 MG INJ IV PRN (05:59)
[2018-09-07] MEDS: PANTOPRAZOLE (EC) 40 MG TAB PO SCH (05:59)
[2018-09-07] MEDS: TAMSULOSIN (SR) 0.4 MG CAP PO SCH (05:59)
[2018-09-07] MEDS: CEFTRIAXONE 1 GM/50 ML (PMX) 50 ML IVPB SCH (09:18)
--- NOTE | 2018-09-07 14:06 | DS ---
Date/Time of Note Date/Time of Note DATE: 09/07/18 TIME: 14:06 Discharge Summary Admission/Discharge Info Admit Date/Time Sep 05, 2018 at 05:44 Discharge Date/Time Sep 07, 2018 at 09:40 Discharge Diagnosis Nephrolithiasis Patient Condition: Stable Hospital Course Adalid found to have obstructing kidney stone She was given IV fliuds and analgesics This morning she left the hospital AMA prior to my evaluation Primary Care Provider Not On Staff Doctor BRANDI OLEARY MD Sep 07, 2018 14:06
== END 2018-09-07 09:40 | disposition left against medical advice (07) | DRG 694 ==
LOC: E/R 02:21 → MS1 05:44
PROVIDERS: ADMIT Internal Medicine; ATTEND Internal Medicine
DX: N13.2 Hydronephrosis with renal and ureteral calculous obstruction (principal); N39.0 Urinary tract infection, site not specified; F17.200 Nicotine dependence, unspecified, uncomplicated; I10 Essential (primary) hypertension; F15.10 Other stimulant abuse, uncomplicated; F12.10 Cannabis abuse, uncomplicated; F10.20 Alcohol dependence, uncomplicated; F41.9 Anxiety disorder, unspecified
CPT/HCPCS: 36415; 74018; 74176; 80053; 80061; 80307; 81001; 81025; 83036; 83690; 83735; 84100; 84484; 85025; 87086; 93005; 96374; 96375; J0696; J1170; J1885; J2270; J2405; J7030